=== PATIENT | male | born 1970 | race Caucasian/White ===

== ENCOUNTER 2016-08-01 06:38 | Emergency (ER) | payer SELFPAY ==
[2016-08-01 06:49] VITALS: BMI 30.4
[2016-08-01 07:06] VITALS: RESP 16
--- NOTE | 2016-08-01 07:28 | ED PDOC ---
Arrival/HPI - General Chief Complaint: Chest Pain Time Seen by Provider: 08/01/16 07:08 Historian: Patient - History of Present Illness Narrative History of Present Illness (Text): 08/01/16 07:17 Toñito Jose is a 46 year old male who denies any past medical history, presents to the emergency department with right sided rib pain today. Patient reports on symptom onset this he was driving and stretched. After the stretch the pain has not subsided. Patient reports very mild shortness of breath which is secondary to the pain. Patient otherwise denies any fever, chills, nausea, vomiting, diarrhea, urinary symptoms, back pain, neck pain, headache, dizziness, or any other complaints. 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 Past Medical History - Provider Review Nursing Documentation Reviewed: Yes - Infectious Disease Hx of Infectious Diseases: None - Psychiatric Hx Substance Use: No - Surgical History Hx Appendectomy: Yes - Anesthesia Hx Anesthesia: Yes Hx Anesthesia Reactions: No Hx Malignant Hyperthermia: No Family/Social History - Physician Review Nursing Documentation Reviewed: Yes Family/Social History: No Known Family HX Smoking Status: Never Smoked Hx Alcohol Use: Yes Frequency of alcohol use: Socially Hx Substance Use: No Allergies/Home Meds Allergies/Adverse Reactions: Allergies No Known Allergies Allergy (Verified 08/01/16 06:49) Review of Systems - Physician Review All systems were reviewed & negative as marked: Yes - Review of Systems Constitutional: Normal. absent: Fevers Eyes: Normal ENT: Normal Respiratory: SOB (shortness of breath secondary to pain). absent: Cough Cardiovascular: Other (Right sided rib pain) Gastrointestinal: Normal. absent: Abdominal Pain, Diarrhea, Nausea, Vomiting Genitourinary Male: Normal. absent: Dysuria, Frequency, Hematuria, Urinary Output Changes Musculoskeletal: Normal. absent: Back Pain, Neck Pain Skin: Normal Neurological: Normal. absent: Headache, Dizziness Endocrine: Normal Hemo/Lymphatic: Normal Psychiatric: Normal Physical Exam Vital Signs Reviewed: Yes Vital Signs Temp Pulse Resp BP Pulse Ox 08/01/16 08:50 98 F 71 16 134/76 99 08/01/16 07:05 98.0 F 77 16 123/59 L 97 Temperature: Afebrile Blood Pressure: Hypertensive Pulse: Regular Respiratory Rate: Normal Appearance: Positive for: Well-Appearing, Non-Toxic, Comfortable Pain Distress: None Mental Status: Positive for: Alert and Oriented X 3 - Systems Exam Head: Present: Atraumatic, Normocephalic Pupils: Present: PERRL Conjunctiva: Present: Normal Mouth: Present: Moist Mucous Membranes Respiratory/Chest: Present: Clear to Auscultation, Good Air Exchange, Other ( Point tenderness to right axillary region). No: Respiratory Distress, Accessory Muscle Use Cardiovascular: Present: Regular Rate and Rhythm, Normal S1, S2. No: Murmurs Abdomen: Present: Normal Bowel Sounds. No: Tenderness, Distention, Peritoneal Signs Lower Extremity: Present: Normal Inspection. No: Edema Neurological: Present: GCS=15, CN II-XII Intact, Speech Normal Skin: Present: Warm, Dry, Normal Color. No: Rashes Psychiatric: Present: Alert, Oriented x 3, Normal Insight, Normal Concentration Medical Decision Making ED Course and Treatment: 08/01/16 07:17 Impression: 46 year old male with ride sided rib pain after stretching. Differential Diagnosis include but are not limited to: Musculoskeletal Pain Plan: -- Chest X-ray -- Labs, cardiac enzymes -- Flexeril -- Toradol -- Reassess and disposition Progress Notes: 08/01/16 07:20 EKG: Ordered, reviewed, and independently interpreted the EKG. Rate : 72 BPM Rhythm : NSR Interpretation : Normal axis, normal intervals Comparison : No previous EKG for comparison. 08/01/16 08:30 On re-evaluation, the patient feels better and is in no acute distress. I have discussed the results and plan with the patient, who expresses understanding. Patient in agreement with plan to discharged home. Patient is stable for discharge. Patient was instructed to follow up with physician/clinic in 1-2 days or return if symptoms worsen or new concerning symptoms arise. 08/01/16 09:32 Procedure: Chest X-Ray Dictator: Jamil Garibay MD Impression: No active disease. Re-evaluation Time: 08:30 Reassessment Condition: Re-examined - Lab Interpretations Lab Results: 08/01/16 06:55 08/01/16 06:55 Lab Results 08/01/16 06:55: Sodium 142, Potassium 4.7, Chloride 102, Carbon Dioxide 29, Anion Gap 16, BUN 14, Creatinine 0.9, Est GFR ( Amer) > 60, Est GFR (Non- Af Amer) > 60, Random Glucose 110, Calcium 9.4, Magnesium 2.2, Total Bilirubin 0.8, AST 124 H, ALT 102 H, Alkaline Phosphatase 71, Lactate Dehydrogenase 594, Total Creatine Kinase 59, Troponin I < 0.01, Total Protein 8.1, Albumin 4.3, Globulin 3.8, Albumin/Globulin Ratio 1.1 08/01/16 06:55: WBC 11.9 H, RBC 4.55, Hgb 13.8 L, Hct 38.8 L, MCV 85.3, MCH 30.3 , MCHC 35.6, RDW 14.0, Plt Count 266, MPV 10.5, Gran % 82.5 H, Lymph % (Auto) 8.2 L, [place] % (Auto) 6.3 H, Eos % (Auto) 2.7, Baso % (Auto) 0.3, Gran # 9.86 H, Lymph # 1.0 L, [place] # 0.8 H, Eos # 0.3, Baso # 0.03 I have reviewed the lab results: Yes - RAD Interpretation Narrative RAD Interpretations (Text): 08/01/16 09:32 Procedure: Chest X-Ray Dictator: Jamil Garibay MD FINDINGS: LUNGS: No active pulmonary disease PLEURA: No significant pleural effusion identified, no pneumothorax apparent. CARDIOVASCULAR: Normal. OSSEOUS STRUCTURES: No significant abnormalities. VISUALIZED UPPER ABDOMEN: Normal. OTHER FINDINGS: None. Impression: No active disease. Radiology Orders: 08/01/16 07:12 CHEST PORTABLE [RAD] Stat Utilization Specialist: Radiologist - EKG Interpretation Interpreted by ED Physician: Yes Type: 12 lead EKG Comparison: No previous EKG avail. - Medication Orders Current Medication Orders: Discontinued Medications Cyclobenzaprine HCl (Flexeril) 10 mg PO STAT STA Stop: 08/01/16 07:23 Last Admin: 08/01/16 07:29 Dose: 10 mg Ketorolac Tromethamine (Toradol) 30 mg IVP STAT STA Stop: 08/01/16 07:23 Last Admin: 08/01/16 07:29 Dose: 30 mg - Scribe Statement The provider has reviewed the documentation as recorded by the Kaila Landa Provider Attestation: All medical record entries made by the Kaila were at my direction and personally dictated by me. I have reviewed the chart and agree that the record accurately reflects my personal performance of the history, physical exam, medical decision making, and the department course for this patient. I have also personally directed, reviewed, and agree with the discharge instructions and disposition. Disposition/Present on Arrival - Present on Arrival Any Indicators Present on Arrival: No History of DVT/PE: No History of Uncontrolled Diabetes: No Urinary Catheter: No History of Decub. Ulcer: No History Surgical Site Infection Following: None - Disposition Have Diagnosis and Disposition been Completed?: Yes Diagnosis: Costochondral chest pain Disposition: HOME/ ROUTINE Disposition Time: 08:30 Condition: GOOD Discharge Instructions (ExitCare): Chest Pain (ED), Noncardiac Chest Pain (ED) Additional Instructions: Thank you for letting us take care of you today. Your provider was Dr. Cruz. You were treated for non-cardiac chest pain. The emergency medical care you received today was directed at your acute symptoms. If you were prescribed any medication, please fill it and take as directed. It may take several days for your symptoms to resolve. Return to the Emergency Department if your symptoms worsen, do not improve, or if you have any other problems. Please contact your doctor or call one of the physicians/clinics you have been referred to that are listed on the Patient Visit Information form that is included in your discharge packet. Bring any paperwork you were given at discharge with you along with any medications you are taking to your follow up visit. Our treatment cannot replace ongoing medical care by a primary care provider (PCP) outside of the emergency department. Thank you for allowing the [facility] team to be part of your care today. Follow up with your doctor in 2 days to be re-evaluated. Prescriptions: Azithromycin [Zithromax] 250 mg PO DAILY #6 tab Cyclobenzaprine [Cyclobenzaprine HCl] 10 mg PO Q8 PRN #20 tab PRN Reason: Muscle Spasm Ibuprofen [Motrin] 600 mg PO Q6 PRN #20 tab PRN Reason: Pain, Moderate (4-7) Referrals: Tao Roque MD [Primary Care Provider] - Follow up with primary
[2016-08-01 08:06] LABS: ADD MANUAL DIFF? NO
[2016-08-01 08:09] LABS: BASO # 0.03 K/mm3 (0.0-2.0); BASO % 0.3 % (0.0-3.0); EOS # 0.3 (0.0-0.7); EOS % 2.7 % (1.5-5.0); GRAN # 9.86 (1.4-6.5); GRAN % 82.5 % (50.0-68.0); HEMATOCRIT 38.8 % (42.0-52.0); LYMPH % 8.2 % (22.0-35.0); MEAN CELL VOLUME 85.3 fL (80.0-105.0); MEAN CORPUSCULAR HEMOGLOBIN 30.3 pg (25.0-35.0); MEAN CORPUSCULAR HGB CONC 35.6 g/dl (31.0-37.0); MEAN PLATELET VOLUME 10.5 fl (7.0-11.0); MONO # 0.8 (0.1-0.6); MONO % 6.3 % (1.0-6.0); PLATELET COUNT 266 10^3/uL (120.0-450.0); WHITE BLOOD COUNT 11.9 10^3/ul (4.5-11.0)
[2016-08-01 08:21] LABS: ALB/GLOB RATIO 1.1 (1.1-1.8); ALKALINE PHOSPHATASE 71 U/L (38-133); ALT/SGPT 102 U/L (7-56); AST/SGOT 124 U/L (15-59); BILIRUBIN,TOTAL 0.8 mg/dL (0.2-1.3); BLOOD UREA NITROGEN 14 mg/dL (7-21); CALCIUM 9.4 mg/dL (8.4-10.5); CARBON DIOXIDE 29 mmol/L (21-33); CHLORIDE 102 mmol/L (98-107); GFR AFRICAN-AMERICAN > 60; GLUCOSE,RANDOM 110 mg/dL (70-110); MAGNESIUM 2.2 mg/dL (1.7-2.2); POTASSIUM 4.7 mmol/L (3.6-5.0); SODIUM 142 mmol/L (132-148); TOTAL PROTEIN 8.1 g/dL (5.8-8.3)
[2016-08-01 08:34] LABS: TROPONIN I < 0.01 ng/mL
[2016-08-01 08:51] VITALS: BP 134/76; PULSE 71; TEMP 98; O2SAT 99
--- NOTE | 2016-08-01 09:34 | RAD ---
HISTORY: chest pain COMPARISON: No prior. FINDINGS: LUNGS: No active pulmonary disease. PLEURA: No significant pleural effusion identified, no pneumothorax apparent. CARDIOVASCULAR: Normal. OSSEOUS STRUCTURES: No significant abnormalities. VISUALIZED UPPER ABDOMEN: Normal. OTHER FINDINGS: None. IMPRESSION: No active disease.
--- NOTE | 2016-08-02 15:13 | CARD ---
APPROVED REPORT EKG Measurement Heart [id number] <Conclusion> Normal sinus rhythm Minimal voltage criteria for LVH, may be normal variant Borderline ECG
== END 2016-08-01 08:51 | disposition home or self-care (01) ==
LOC: ED 06:38
DX: R07.1 Chest pain on breathing (principal)
CPT/HCPCS: 71010; 80053; 82550; 83615; 83735; 84484; 85025; 93005; 96374; 99284; J1885